=== PATIENT | male | born 1950 ===

== ENCOUNTER 2020-02-14 09:21 | Outpatient (CLI) | payer MEDICAID, MEDICARE ==
--- NOTE | 2020-02-14 13:44 | Ultrasound Report ---
ULTRASOUND TESTICULAR DOPPLER COMPLETE HISTORY: Scrotal pain TECHNIQUE: Grayscale ultrasound with color and spectral Doppler imaging. COMPARISON: None. FINDINGS: The right testicle measures 4.1 x 2.3 x 3.4 cm. The left testicle measures 4.5 x 2.7 x 3.2 cm. A 1.4 x 1.2 x 1.2 cm left testicular cyst is identified. No evidence for mass, calcifications, hyperemia or inflammatory changes. 4 mm left epididymal head cyst is noted. The right epididymis is unremarkable. No significant hydrocele or varicocele. Spectral Doppler waveforms demonstrate arterial flow to both testicles. IMPRESSION: Left testicular cyst as described. No evidence for inflammation, mass or torsion. 4 mm left epididymal head cyst. Signer Name: Kale Mcdonald Jr, MD Signed: 02/14/2020 1:39 PM Workstation Name: [id number]
== END 2020-02-14 09:22 | disposition home or self-care (01) ==
LOC: US 09:21
PROVIDERS: ATTEND Urology
DX: N50.82 Scrotal pain (principal)
CPT/HCPCS: 76870; 93975